=== PATIENT | female | born 1945 | race Caucasian/White ===

== ENCOUNTER 2021-07-20 23:35 | Emergency (ER) | payer MEDICARE, MEDICAID, SELFPAY ==
[2021-07-20 23:43] VITALS: BP 119/77; PULSE 86; RESP 18; TEMP 36.6; O2SAT 95
--- NOTE | 2021-07-20 23:52 | PC.NURSE ---
Pts family approached triage desk and states her vitals were fine, I don't think shes in any danger tonight. She can see her primary doctor tomorrow . Before this RN could advise pt and family of risks of leaving and benefits of staying, pt walked out of ED with steady gait.
== END 2021-07-21 00:01 | disposition left against medical advice (07) ==
PROVIDERS: PCP Internal Medicine
DX: R53.1 Weakness (principal)
CPT/HCPCS: 99199

== ENCOUNTER 2024-05-30 14:04 | Outpatient (CLI) | payer MEDICAID, MEDICARE, SELFPAY | END 2024-05-30 14:05 | disposition home or self-care (01) | LOC: ANHAUDIO 14:11 | PROVIDERS: PCP Internal Medicine; Visit Provider Internal Medicine Gastroenterology | DX: H91.93 Unspecified hearing loss, bilateral (principal) | CPT/HCPCS: 99199 ==